=== PATIENT | female | born 1965 | race Caucasian/White ===

== ENCOUNTER 2016-12-09 14:56 | Emergency (ER) | payer BC ==
[2016-12-09] MEDS ORDERED: Ketorolac INJ* 30 MG/ML 1 ML VIAL IV ONE (17:42)
[2016-12-09 17:52] LABS: Urine Bacteria Absent (Absent); Urine Bilirubin Negative (Negative); Urine Glucose Negative (Negative); Urine Nitrite Negative (Negative)
[2016-12-09 17:54] LABS: Hematocrit 38 % (35-47); Hemoglobin 13.2 g/dl (12.0-16.0); Mean Corpuscular HGB Conc 35 g/dl (31-36); Mean Corpuscular Hemoglobin 32 pg (27-31); Mean Corpuscular Volume 91 fL (80-97); Mean Platelet Volume 8 um3 (7.4-10.4); Red Blood Count 4.18 10^6/ul (4.0-5.4); Red Cell Distribution Width 13 % (10.5-15); White Blood Count 7.4 10^3/ul (3.5-10.8)
[2016-12-09 18:10] LABS: BUN/Creatinine Ratio 13.9 (8-20); C Reactive Protein 1.01 mg/L (< 5.00); Calcium 9.5 mg/dL (8.6-10.3); EGFR African American 109.8 (>60); EGFR Non-African American 85.4 (>60); Globulin 2.8 g/dL (2-4); Potassium 3.8 mmol/L (3.5-5.0); Total Bilirubin 0.5 mg/dL (0.2-1.0); Total Protein 6.8 g/dL (6.4-8.9)
--- NOTE | 2016-12-09 19:10 | RAD ---
CLINICAL HISTORY: Right flank pain COMPARISON: None TECHNIQUE: Multiple contiguous axial CT scans were obtained of the abdomen and pelvis, without intravenous contrast enhancement. Coronal and sagittal multiplanar reformations are submitted for review. Oral contrast was not administered. FINDINGS: The study is limited by the lack of intravenous contrast. This limits evaluation of the solid organs and vasculature. LUNG BASES: The lung bases are clear. LIVER: The liver is normal in shape, size, contour, and attenuation. BILE DUCTS: There is no intrahepatic or extrahepatic biliary dilatation. GALLBLADDER: The gallbladder is normal, without pericholecystic inflammatory change. PANCREAS: The pancreas is normal, without mass or ductal dilatation. SPLEEN: Normal in size and appearance. UPPER GI TRACT: Evaluation of the gastrointestinal tract is limited by incomplete gastric distention. The upper GI tract is unremarkable. SMALL BOWEL AND MESENTERY: The small bowel is normal in contour, course, and caliber. There is no obstruction or dilatation. COLON: The colon is normal in contour, course, caliber. There is no pericolonic inflammatory change. There is a tubular, vermiform, hollow viscus that is blind ending, and originates from the cecum, consistent with a normal appendix. There is no periappendiceal inflammatory change. This is best seen on axial images 97 through 114 ADRENALS: Normal bilaterally. KIDNEYS: The kidneys are normal in shape, size, contour, and axis. There is no hydronephrosis or nephrolithiasis. BLADDER: The bladder is incompletely distended but is grossly normal. PELVIC ORGANS: The uterus is bulky with small calcified fibroids. AORTA: The aorta is normal. IVC: Unremarkable LYMPH NODES: There is no lymphadenopathy by size criteria. ABDOMINAL WALL: There is no evidence for abdominal wall hernia. BONES AND SOFT TISSUES: There are mild diffuse degenerative changes. OTHER: None IMPRESSION: NO HYDRONEPHROSIS OR NEPHROLITHIASIS. FIBROID UTERUS.
[2016-12-09] MEDS ORDERED: HYDROcodone/ACETAMIN 5-325 MG* 1 TAB PO SCH (21:00)
[2016-12-09 21:19] VITALS: BP 143/88
--- NOTE | 2016-12-09 21:51 | ED ---
Haleigh Sarkar Erika, scribed for Luis F Borja MD on 12/09/16 at 1812 . GI/ HPI - HPI Summary HPI Summary: Patient is a 51-year-old female presenting to the ED with a CC of RLQ pain. Patient reports that she had some abdominal cramping this morning. Starting at 12:00 today, patient developed the RLQ pain, which radiates into the right flank. Pain is constantly dull and intermittently sharp. Currently, she rates pain a 6/10. Pain is aggravated by movement. Associated symptoms include nausea , but she denies vomiting, urinary symptoms, and abnormal BMs. Patient reports she had food at 07:30, 11:30, and 14:30, which did not affect the pain. PSHx endometrial ablation in 04/2016 - she reports intermittent cramping since then. - History of Current Complaint Chief Complaint: EDFlankPain Time Seen by Provider: 12/09/16 16:42 Stated Complaint: ABDOMINAL PAIN Hx Obtained From: Patient Onset/Duration: Started Hours Ago, Atraumatic, Still Present Timing: Constant Severity: Moderate Pain Intensity: 6 Location of Pain: RLQ, Flank - R Pain Characteristics: Sharp - intermittently, Dull - constantly Associated Signs and Symptoms: Positive: Nausea. Negative: Vomiting, Diarrhea, UTI Symptoms Aggravating Factor(s): Movement - Allergy/Home Medications Allergies/Adverse Reactions: Allergies Allergy/AdvReac Type Severity Reaction Status Date / Time SEASONAL HAYFEVER Allergy Intermediate SNEEZING, Uncoded 12/08/16 13:45 RUNNY NOSE PMH/Surg Hx/FS Hx/Imm Hx Endocrine/Hematology History: Denies: Hx Diabetes Cardiovascular History: Denies: Hx Hypertension, Hx Pacemaker/ICD GI History: Reports: Hx Gastroesophageal Reflux Disease - mild, Hx Irritable Bowel History: Reports: Other Problems/Disorders - UTI'S IN THE PAST Denies: Hx Renal Disease Musculoskeletal History: Reports: Hx Arthritis - minor in hands, ankles, hips, Hx Bursitis - HISTORY OF IN BILATERAL ELBOWS AND KNEES -no active at this time Denies: Hx Rheumatoid Arthritis, Hx Osteoporosis Sensory History: Reports: Hx Contacts or Glasses - CONTACT WILL WEAR GLASSES DAY OF SURGERY Denies: Hx Hearing Aid Opthamlomology History: Reports: Hx Contacts or Glasses - CONTACT WILL WEAR GLASSES DAY OF SURGERY Psychiatric History: Reports: Hx Depression - ON MEDICATION Denies: Hx Panic Disorder - Surgical History Surgery Procedure, Year, and Place: 1994 RIGHT WRIST SURGERY, [facility]. ?, 2002, 2009 ARTHROSCOPIC SURGERY X 3 ON LEFT KNEE, [facility]. 2010 CYST REMOVED FROM TOP OF LEFT FOOT, [facility]. 2013 CYST REMOVED FROM LEFT ANKLE. 2006 TUBAL DONE. 2016 endometrial ablation Hx Anesthesia Reactions: No Infectious Disease History: No Infectious Disease History: Denies: Traveled Outside the [place] in Last 30 Days - Family History Known Family History: Positive: Other - Breast CA - Social History Occupation: Employed Full-time Alcohol Use: Occasionally Hx Substance Use: No Substance Use Type: Reports: None Hx Tobacco Use: No Smoking Status (MU): Never Smoked Tobacco Review of Systems Positive: Abdominal Pain - RLQ, Nausea. Negative: Vomiting Positive: flank pain - R. Negative: dysuria All Other Systems Reviewed And Are Negative: Yes Physical Exam Triage Information Reviewed: Yes Vital Signs On Initial Exam: Initial Vitals Temp Pulse Resp BP Pulse Ox 97.6 F 74 15 152/82 100 12/09/16 15:03 12/09/16 15:03 12/09/16 15:03 12/09/16 15:03 12/09/16 15:03 Vital Signs Reviewed: Yes Appearance: Positive: Well-Appearing, No Pain Distress Skin: Positive: Warm, Skin Color Reflects Adequate Perfusion, Dry Head/Face: Positive: Normal Head/Face Inspection Eyes: Positive: Normal ENT: Positive: Normal ENT inspection Neck: Positive: Supple, Nontender Respiratory/Lung Sounds: Positive: Clear to Auscultation, Breath Sounds Present Cardiovascular: Positive: RRR Abdomen Description: Positive: Soft, Other: - Very mild RLQ tenderness Bowel Sounds: Positive: Present Musculoskeletal: Positive: Normal Neurological: Positive: Normal Psychiatric: Positive: Affect/Mood Appropriate - Finn Coma Scale Coma Scale Total: 15 Diagnostics - Vital Signs Vital Signs Temp Pulse Resp BP Pulse Ox 12/09/16 16:36 69 131/75 96 12/09/16 16:04 78 136/91 99 12/09/16 16:03 98.2 F 76 16 136/92 100 12/09/16 15:03 97.6 F 74 15 152/82 100 - Laboratory Lab Results: Lab Results 12/09/16 12/09/16 12/09/16 Range/Units 16:37 17:38 17:38 WBC 7.4 (3.5-10.8) 10^3/ul RBC 4.18 (4.0-5.4) 10^6/ul Hgb 13.2 (12.0-16.0) g/dl Hct 38 (35-47) % MCV 91 (80-97) fL MCH 32 H (27-31) pg MCHC 35 (31-36) g/dl RDW 13 (10.5-15) % Plt Count 220 (150-450) 10^3/ul MPV 8 (7.4-10.4) um3 Neut % (Auto) 73.9 (38-83) % Lymph % (Auto) 17.2 L (25-47) % [place] % (Auto) 6.1 (1-9) % Eos % (Auto) 0.6 (0-6) % Baso % (Auto) 2.2 H (0-2) % Absolute Neuts (auto) 5.5 (1.5-7.7) 10^3/ul Absolute Lymphs (auto) 1.3 (1.0-4.8) 10^3/ul Absolute Monos (auto) 0.5 (0-0.8) 10^3/ul Absolute Eos (auto) 0 (0-0.6) 10^3/ul Absolute Basos (auto) 0.2 (0-0.2) 10^3/ul Absolute Nucleated RBC 0 10^3/ul Nucleated RBC % 0.1 Sodium 134 (133-145) mmol/L Potassium 3.8 (3.5-5.0) mmol/L Chloride 103 (101-111) mmol/L Carbon Dioxide 25 (22-32) mmol/L Anion Gap 6 (2-11) mmol/L BUN 10 (6-24) mg/dL Creatinine 0.72 (0.51-0.95) mg/dL Est GFR ( Amer) 109.8 (>60) Est GFR (Non-Af Amer) 85.4 (>60) BUN/Creatinine Ratio 13.9 (8-20) Glucose 88 (70-100) mg/dL Lactic Acid (0.5-2.0) mmol/L Calcium 9.5 (8.6-10.3) mg/dL Total Bilirubin 0.50 (0.2-1.0) mg/dL AST 21 (13-39) U/L ALT 35 (7-52) U/L Alkaline Phosphatase 55 (34-104) U/L C-Reactive Protein 1.01 (< 5.00) mg/L Total Protein 6.8 (6.4-8.9) g/dL Albumin 4.0 (3.2-5.2) g/dL Globulin 2.8 (2-4) g/dL Albumin/Globulin Ratio 1.4 (1-3) Lipase 29 (11.0-82.0) U/L Urine Color Yellow Urine Appearance Clear Urine pH 6.0 (5-9) Ur Specific [place] 1.026 (1.010-1.030) Urine Protein Negative (Negative) Urine Ketones Trace H (Negative) Urine Blood 1+ H (Negative) Urine Nitrate Negative (Negative) Urine Bilirubin Negative (Negative) Urine Urobilinogen Negative (Negative) Ur Leukocyte Esterase Trace H (Negative) Urine WBC (Auto) Trace(0-5/hpf) (Absent) Urine RBC (Auto) 1+(3-5/hpf) H (Absent) Ur Squamous Epith Cells Present H (Absent) Urine Bacteria Absent (Absent) Urine Glucose Negative (Negative) 12/09/16 Range/Units 17:38 WBC (3.5-10.8) 10^3/ul RBC (4.0-5.4) 10^6/ul Hgb (12.0-16.0) g/dl Hct (35-47) % MCV (80-97) fL MCH (27-31) pg MCHC (31-36) g/dl RDW (10.5-15) % Plt Count (150-450) 10^3/ul MPV (7.4-10.4) um3 Neut % (Auto) (38-83) % Lymph % (Auto) (25-47) % [place] % (Auto) (1-9) % Eos % (Auto) (0-6) % Baso % (Auto) (0-2) % Absolute Neuts (auto) (1.5-7.7) 10^3/ul Absolute Lymphs (auto) (1.0-4.8) 10^3/ul Absolute Monos (auto) (0-0.8) 10^3/ul Absolute Eos (auto) (0-0.6) 10^3/ul Absolute Basos (auto) (0-0.2) 10^3/ul Absolute Nucleated RBC 10^3/ul Nucleated RBC % Sodium (133-145) mmol/L Potassium (3.5-5.0) mmol/L Chloride (101-111) mmol/L Carbon Dioxide (22-32) mmol/L Anion Gap (2-11) mmol/L BUN (6-24) mg/dL Creatinine (0.51-0.95) mg/dL Est GFR ( Amer) (>60) Est GFR (Non-Af Amer) (>60) BUN/Creatinine Ratio (8-20) Glucose (70-100) mg/dL Lactic Acid 1.0 (0.5-2.0) mmol/L Calcium (8.6-10.3) mg/dL Total Bilirubin (0.2-1.0) mg/dL AST (13-39) U/L ALT (7-52) U/L Alkaline Phosphatase (34-104) U/L C-Reactive Protein (< 5.00) mg/L Total Protein (6.4-8.9) g/dL Albumin (3.2-5.2) g/dL Globulin (2-4) g/dL Albumin/Globulin Ratio (1-3) Lipase (11.0-82.0) U/L Urine Color Urine Appearance Urine pH (5-9) Ur Specific [place] (1.010-1.030) Urine Protein (Negative) Urine Ketones (Negative) Urine Blood (Negative) Urine Nitrate (Negative) Urine Bilirubin (Negative) Urine Urobilinogen (Negative) Ur Leukocyte Esterase (Negative) Urine WBC (Auto) (Absent) Urine RBC (Auto) (Absent) Ur Squamous Epith Cells (Absent) Urine Bacteria (Absent) Urine Glucose (Negative) Result Diagrams: 12/09/16 17:38 12/09/16 17:38 Lab Statement: Any lab studies that have been ordered have been reviewed, and results considered in the medical decision making process. - CT CT A/P W/O CT Interpretation Completed By: Radiologist - IMPRESSION: NO HYDRONEPHROSIS OR NEPHROLITHIASIS. FIBROID UTERUS. - EKG 17:43 Cardiac Rate: NL - at 69 bpm EKG Rhythm: Sinus Rhythm ST Segment: Non-Specific Re-Evaluation - Re-Evaluation First Eval Re-Evaluation Time: 19:40 Comment: Discussed lab and CT results with patient GIGU Course/Dx - Course Course Of Treatment: Her W/U was negative here. We discussed getting an U/S but she has had one just a week ago and since her symptoms are mild now and no dangerous condition has been found, she elected to be D/C'd and F/U if needed. - Diagnoses Provider Diagnoses: Abdominal pain Discharge - Discharge Plan Condition: Stable Disposition: HOME Prescriptions: HYDROcodone/ACETAMIN 5-325 MG* [Sabinal 5-325 TAB*] 1 tab PO Q6H PRN #20 tab MDD 4 PRN Reason: Pain Patient Education Materials: Abdominal Pain (ED) Referrals: Laina Acevedo, ACCOUNTS SUPERVISOR [Primary Care Provider] - Additional Instructions: Please follow up with your PCP. The documentation as recorded by the Haleigh mejia Erika accurately reflects the service I personally performed and the decisions made by me, Luis F Borja MD.
== END 2016-12-09 20:20 | disposition home or self-care (01) ==
LOC: ED 14:56
DX: R10.31 Right lower quadrant pain (principal); K21.9 Gastro-esophageal reflux disease without esophagitis; F32.9 Major depressive disorder, single episode, unspecified
CPT/HCPCS: 36415; 74176; 80053; 81003; 81015; 83605; 83690; 85025; 86140; 87086; 93005; 96374; 99283; J1885

== ENCOUNTER 2017-02-02 06:26 | Observation (INO) | payer BC ==
[~2017-02-02 06:26] MED LIST: Dexamethasone IV* 4 MG/ML 1 ML (4 MG) IV SLOW PU ONE; Dexamethasone IV* 4 MG/ML 1 ML (4 MG) ONE; Famotidine IV* 10 MG/ML 2 ML (20 mg) IV ONE; Famotidine IV* 10 MG/ML 2 ML (20 mg) ONE; Scopolamine 1.5 mg* PATCH ONE; Scopolamine 1.5 mg* PATCH TRANSDERM ONE; ceFAZolin 2 GM PREMIX(*) 2 GM/50 ML BAG IVPB ONE
[2017-02-02] MEDS ORDERED: VASOPRESSIN 20 UNITS/ML 1 ML VIAL ONE (07:22)
[2017-02-02] MEDS ORDERED: Bacitracin OINTMENT* 1 TUBE ONE (07:22)
[2017-02-02] MEDS ORDERED: Midazolam* 1 MG/ML 5 ML VIAL (5 MG) ONE (07:40)
[2017-02-02] MEDS ORDERED: fentaNYL* 50 MCG/ML 2 ML VIAL (100 MCG VIAL) ONE ×5 (07:40→12:27)
[2017-02-02] MEDS ORDERED: Lidocaine 2% PF * 5 ML VIAL ONE (07:47)
[2017-02-02] MEDS ORDERED: Rocuronium* 10 MG/ML VIAL ONE (07:47)
[2017-02-02] MEDS ORDERED: Propofol* 10 MG/ML 20 ML BTL IV PUSH ONE (07:47)
[2017-02-02] MEDS ORDERED: EPHEDrine (Pressors)* 50 MG/ML VIAL ONE (08:01)
[2017-02-02] MEDS ORDERED: Ondansetron INJ* 2 MG/ML VIAL ONE (08:08)
[2017-02-02] MEDS ORDERED: PROCHLORPERAZINE INJ 5 MG/ML 2 ML VIAL IV PRN (08:29)
[2017-02-02] MEDS ORDERED: Morphine INJ* 2 MG/ML 1 ML SYRINGE IV PRN (08:29)
[2017-02-02] MEDS ORDERED: KETAMINE HCL* 50 MG/ML 10 ML VIAL ONE (08:33)
[2017-02-02] MEDS ORDERED: Labetalol IV* 5 MG/ML 20 ML VIAL ONE (09:17)
[2017-02-02] MEDS ORDERED: Ketorolac INJ* 30 MG/ML 1 ML VIAL ONE (09:18)
[2017-02-02] MEDS ORDERED: Morphine INJ* 10 MG/ML 1 ML SYRINGE ONE (09:22)
[2017-02-02] MEDS: fentaNYL* 50 MCG/ML 2 ML VIAL (100 MCG VIAL) IV PRN ×3 (11:03→12:27)
[2017-02-02] MEDS: oxyCODONE/Acetamin 5/325 MG* TAB PO PRN ×2 (11:49→12:45)
[2017-02-02] MEDS ORDERED: oxyCODONE/Acetamin 5/325 MG* TAB ONE ×2 (11:49→12:45)
[2017-02-02] MEDS ORDERED: Ibuprofen TAB* 600 MG PO PRN (12:09)
[2017-02-02] MEDS ORDERED: oxyCODONE/Acetamin 5/325 MG* TAB PO PRN ×2 (12:09)
[2017-02-02] MEDS ORDERED: Zolpidem TAB* 5 MG PO PRN (12:09)
[2017-02-02] MEDS ORDERED: Acetaminophen TAB* 325 MG PO PRN (12:09)
[2017-02-02] MEDS: Docusate CAP* 100 MG PO SCH ×2 (15:19→21:20)
--- NOTE | 2017-02-03 03:23 | OP ---
DATE OF OPERATION: 02/02/17 - ROOM #338 DATE OF : 65 SURGEON: Adina Monsivais MD ANESTHESIOLOGIST: Deny Vicente MD ANESTHESIA: General endotracheal. PRE-OP DIAGNOSIS: Pelvic pain, postablation syndrome. POST-OP DIAGNOSES: Pelvic pain, postablation syndrome; fibroid uterus. OPERATIVE PROCEDURE: Total vaginal hysterectomy. ESTIMATED BLOOD LOSS: 500 mL. FLUIDS: Crystalloid. DRAINS: Baptiste catheter. FINDINGS: Normal-appearing cervix with two small inclusion cysts to the left of the cervix. Normal-appearing very small ovaries. Tubes with what appears to be a Falope ring at least on the left tube that was visible and uterus with several small fibroids and possible adenomyosis. DESCRIPTION OF PROCEDURE: After informed consent was signed, the patient was taken to the operating room where she was given general anesthesia that was found to be adequate. SCDs were placed on her leg. She was prepped and draped in the normal sterile fashion in the dorsal lithotomy position and the Jonh stirrups. A Baptiste catheter was introduced into her bladder. A speculum was placed into the vagina to expose the cervix and the anterior and posterior lips of the cervix were grasped with Landa tenaculum. The ectocervix was infiltrated with vasopressin. Electrocautery was then used to make a circumferential incision around the cervix at the cervicovaginal junction. Sharp dissection was then used with the Kiran scissors to dissect the bladder off the anterior aspect of the cervix. This was continued around the rest of the cervix. Blunt dissection was then used to further dissect the tissue off the cervix. Next, the anterior cul-de-sac was entered with sharp dissection with the Kiran scissors and a right angle retractor was inserted. The uterosacral ligaments were then palpated, clamped with a Carolyne clamp, cut, and suture ligated with 0 Vicryl suture. The sutures were held with clamps for later use. Blunt dissection was used to continue to dissect the bladder off the cervix. The cardinal ligaments were then clamped, cut, and suture ligated with 0 Vicryl. The bladder continued to be dissected and the posterior cul-de-sac was then entered with the Metzenbaum scissors and the retractor was inserted. Next, the uterine vessels and the rest of the cardinal ligaments were clamped, suture ligated and cut. This was continued along the left and the right side of the cervix until the parametrium was identified. Next, the Newberg tenaculums were used to grasp the body of the uterus and deliver it posteriorly through the vaginal incision. The uterine tissue was very friable and with the presence of the fibroids, it was somewhat difficult to deliver the uterus and when it was delivered, it was then possible to work around the uterus. Therefore, the utero-ovarian ligaments were clamped on either side and the uterus was then morcellated to the vagina. Then, the utero-ovarian ligaments were clamped, cauterized, and cut with the LigaSure device. This was continued to the mesosalpinx until the uterus was totally freed. The specimen was removed from the vagina and sent to Pathology. Attempts were made to remove the tubes, but only the right tube was easily found. This was clamped, cauterized, and cut with the LigaSure device. Vidal culdoplasty was then performed placing the suture through either uterosacral ligament as well as through the posterior peritoneum and the anterior peritoneum. This was tied off in a pursestring fashion. Then, the uterosacral ligaments were tied together and the vaginal cuff was closed with 0 Vicryl in a running fashion. An extra [id number] suture was placed in the middle of the incision for good hemostasis. Finally, saline-soaked packing was placed into the vagina. The speculum was removed from the vagina. The patient was awakened from anesthesia, placed back in the supine position and moved to the recovery room in stable condition. [id number]/[facility] #: [id number] MAURICE
[2017-02-03 07:23] LABS: Hematocrit 32 % (35-47); Hemoglobin 10.9 g/dl (12.0-16.0); Mean Corpuscular HGB Conc 34 g/dl (31-36); Mean Corpuscular Hemoglobin 32 pg (27-31); Mean Corpuscular Volume 94 fL (80-97); Mean Platelet Volume 8 um3 (7.4-10.4); Red Blood Count 3.39 10^6/ul (4.0-5.4); Red Cell Distribution Width 13 % (10.5-15); White Blood Count 10.1 10^3/ul (3.5-10.8)
--- NOTE | 2017-02-03 08:04 | DS ---
DISCHARGE SUMMARY: DATE OF ADMISSION: 02/02/17 DATE OF DISCHARGE: 02/03/17 HOSPITAL COURSE: This patient is a 51-year-old, 5 para 4, seen in the office with persistent pelvic pain. This was considered to be likely due to a post ablation syndrome since she had had a prior tubal ligation and uterine endometrial ablation. On the day of admission, she underwent an uncomplicated total vaginal hysterectomy with a partial right salpingectomy with Dr. Monsiavis. Estimated blood loss was 500 cc. After a brief recovery, she was transferred to the [facility]. On postoperative day 1, the patient was ambulating and tolerating regular diet and voided spontaneously after removal of her catheter. Vaginal packing was also removed. She was having very good pain control with oral pain medications and was passing flatus. She was discharged to home in good condition on postoperative day 1. DISCHARGE PHYSICAL EXAMINATION: Vital Signs: Temperature 98.5, pulse 68, blood pressure 93/50. General: No acute distress, very comfortable, seated in bed. Chest: Clear to auscultation bilaterally. Cardiovascular: Normal sinus rhythm. Abdomen: Minimal tenderness to palpation with normal bowel sounds. No rebound or guarding. Pelvic examination: Vaginal packing removed without difficulty and the patient tolerated well. Only mild amount of blood present on the upper packing. LABORATORY DATA: Postop Hct 32 DISCHARGE INSTRUCTIONS: Were provided in written form and verbally. DISCHARGE MEDICATIONS: Please see the medication reconciliation form. DISCHARGE DIAGNOSIS: Pelvic pain with post ablation syndrome, status post uncomplicated total vaginal hysterectomy, partial right salpingectomy. [id number]/[facility] #: [id number] MTDD
[2017-02-03 09:25] VITALS: BP 99/51
[2017-02-03] MEDS: Docusate CAP* 100 MG PO SCH (10:05)
[2017-02-05] MEDS ORDERED: Scopolomine PATCH Remove* 1 NOTE MISC PATCH OFF ONE (06:00)
== END 2017-02-03 11:00 | disposition home or self-care (01) ==
LOC: OR 06:26 → SSU 13:17
PROVIDERS: ADMIT Obstetrics & Gynecology; ATTEND Obstetrics & Gynecology
PROC: 0UTC7ZZ Resection of Cervix, Via Natural or Artificial Opening (ICD-10-PCS; 2017-02-02)
PROC: 0UT97ZZ Resection of Uterus, Via Natural or Artificial Opening (ICD-10-PCS; principal; 2017-02-02 07:45)
DX: R10.2 Pelvic and perineal pain (principal); R30.0 Dysuria; D25.1 Intramural leiomyoma of uterus
CPT/HCPCS: 36415; 85025; 88307; 94760; A9270-GY; G0378; J0690; J1100; J1885; J2250; J2270; J2405; J2704; J3010

== ENCOUNTER 2019-04-01 15:34 | Emergency (ER) | payer BC ==
[2019-04-01] MEDS ORDERED: Al Hydrox/Mg Hydrox/Simet LIQ* 30 ML UDC PO ONE (16:13)
[2019-04-01 16:16] LABS: ABS Eosinophils 0.1 10^3/ul (0-0.6); ABS Lymphocytes 1.2 10^3/ul (1.0-4.8); ABS Monocytes 0.5 10^3/ul (0-0.8); Eosinophil % 1.9 %; Hematocrit 39 % (35-47); Hemoglobin 13.7 g/dL (12.0-16.0); Lymphocyte % 25.2 %; Mean Corpuscular HGB Conc 35 g/dL (31-36); Mean Corpuscular Hemoglobin 32 pg (27-31); Mean Corpuscular Volume 90 fL (80-97); Mean Platelet Volume 7.2 fL (7.4-10.4); Nucleated Red Blood Cells % 0.1; Platelet Count 234 10^3/uL (150-450); Red Blood Count 4.32 10^6 /uL (3.70-4.87); Red Cell Distribution Width 13 % (10-15); White Blood Count 4.8 10^3/uL (3.5-10.8)
--- NOTE | 2019-04-01 16:16 | ED ---
HPI Chest Pain - HPI Summary HPI Summary: The patient is a 53 y/o F presenting to [facility] with a chief complaint of sudden onset right anterior CP starting last night with intermittent episodes persisting into today. She reports that she had mowed her lawn on a riding mower about an hour before the pain started. Since then, shes had episodes of burning in the chest, which she wasnt sure if it had been from indigestion. She additionally c/o mild SOB, extreme nausea without vomiting, and mild edema in the BLE. She denies any fever, chills, cough with bloody sputum, or abdominal pain. Her current pain is rated 1/10 in severity. No recent long travel. PMHx: GERD, bronchitis, depression, partial hysterectomy, endometrial ablation. FHx: HTN, cardiac disease MA father 70s. No FHx of blood clots. Nonsmoker, occasional EtOH, no substance use. Medications reviewed. Allergies noted. - History of Current Complaint Chief Complaint: EDChestPainROMI Time Seen by Provider: 04/01/19 15:59 Hx Obtained From: Patient Onset/Duration: Started Hours Ago, Still Present Timing: Intermittent, Lasting Minutes Initial Severity: Moderate Current Severity: Mild Pain Intensity: 1 Pain Scale Used: 0-10 Numeric Chest Pain Location: Right Anterior Chest Pain Radiates: No Character: Burning Aggravating Factor(s): Nothing Alleviating Factor(s): Nothing Associated Signs and Symptoms: Positive: Chest Pain, Shortness of Breath - mild , Nausea, Edema - mild, BLE. Negative: Fever, Chills, Cough, Abdominal Pain, Vomiting, Bloody Sputum - Additional Pertinent History Primary Care Physician: VIRI - Allergy/Home Medications Allergies/Adverse Reactions: Allergies Allergy/AdvReac Type Severity Reaction Status Date / Time Iodinated Contrast- Oral and Allergy Mild Rash Verified 10/18/17 17:49 IV Dye SEASONAL HAYFEVER Allergy Intermediate SNEEZING, Uncoded 10/18/17 15:02 RUNNY NOSE GLUTEN Allergy Mild GI Upset Uncoded 10/18/17 15:02 Home Medications: Home Medications Aleve 2 cap PO SEE INSTRUCTIONS 04/01/19 [History Confirmed 04/01/19] PMH/Surg Hx/FS Hx/Imm Hx Endocrine/Hematology History: Denies: Hx Diabetes Cardiovascular History: Denies: Hx Hypertension, Hx Pacemaker/ICD GI History: Reports: Hx Gastroesophageal Reflux Disease - controlled with diet, Hx Irritable Bowel - controlled with diet History: Reports: Other Problems/Disorders - UTI'S IN THE PAST Denies: Hx Renal Disease Musculoskeletal History: Reports: Hx Arthritis - minor in hands, ankles, hips, Hx Bursitis - HISTORY OF IN BILATERAL ELBOWS AND KNEES -no active at this time Denies: Hx Rheumatoid Arthritis, Hx Osteoporosis Sensory History: Reports: Hx Contacts or Glasses - contacts, will wear glasses DOS Denies: Hx Hearing Aid Opthamlomology History: Reports: Hx Contacts or Glasses - contacts, will wear glasses DOS Psychiatric History: Reports: Hx Depression - controlled with medication Denies: Hx Panic Disorder - Surgical History Surgery Procedure, Year, and Place: 1994 RIGHT WRIST SURGERY, [place]. ?, 2002, 2008 ARTHROSCOPIC SURGERY X 3 ON LEFT KNEE, [place]. 2010 CYST REMOVED FROM TOP OF LEFT FOOT, [place]. 2012 CYST REMOVED FROM LEFT ANKLE. 2005 TUBAL DONE. DECEMBER 2016 HYSTERECTOMY Hx Anesthesia Reactions: No Infectious Disease History: No Infectious Disease History: Denies: Traveled Outside the in Last 30 Days - Family History Known Family History: Positive: Other - Breast CA - Social History Alcohol Use: Occasionally Alcohol Amount: 1-2 drinks a week, Hx Substance Use: No Substance Use Type: Reports: None Hx Tobacco Use: No Smoking Status (MU): Never Smoked Tobacco Review of Systems Negative: Fever, Chills Positive: Chest Pain - intermittent burning in right anterior chest Positive: Shortness Of Breath - mild. Negative: Cough Positive: Nausea. Negative: Abdominal Pain, Vomiting Positive: Edema - mild, BLE All Other Systems Reviewed And Are Negative: Yes Physical Exam - Summary Physical Exam Summary: Constitutional: Well-developed, Well-nourished, Alert. (-) Distressed Skin: Warm, Dry HENT: Normocephalic; Atraumatic Eyes: Conjunctiva normal Neck: Musculoskeletal ROM normal neck. (-) JVD, (-) Stridor, (-) Tracheal deviation Cardio: Rhythm regular, rate normal, Heart sounds normal; Intact distal pulses; The pedal pulses are 2+ and symmetric. Radial pulses are 2+ and symmetric. (-) Murmur Pulmonary/Chest wall: Effort normal. (-) Respiratory distress, (-) Wheezes, (-) Rales Abd: Soft, (-) tenderness, (-) Distension, (-) Guarding, (-) Rebound Musculoskeletal: Good pulses bilaterally in radius, No calf tenderness, No venous cords, No pain with dorsiflexion of foot. (-) Edema Lymph: (-) Cervical adenopathy Neuro: Alert, Oriented x3 Psych: Mood and affect Normal Triage Information Reviewed: Yes Vital Signs On Initial Exam: Initial Vitals Temp Pulse Resp BP Pulse Ox 97.2 F 83 18 176/85 100 04/01/19 15:40 04/01/19 15:40 04/01/19 15:40 04/01/19 15:40 04/01/19 15:40 Vital Signs Reviewed: Yes Diagnostics - Vital Signs Vital Signs Temp Pulse Resp BP Pulse Ox 04/01/19 15:40 97.2 F 83 18 176/85 100 - Laboratory Result Diagrams: 04/01/19 16:03 04/01/19 16:03 Lab Statement: Any lab studies that have been ordered have been reviewed, and results considered in the medical decision making process. - Radiology CXR Radiology Interpretation Completed By: Radiologist Summary of Radiographic Findings: Impression: No active cardiopulmonary disease is noted. ED physician has reviewed this report. - EKG 1536 Cardiac Rate: NL - 79 bpm Summary of EKG Findings: NSR at 79 bpm. T wave inversions in V2 and V3. Normal intervals. Re-Evaluation - Re-Evaluation First Eval Re-Evaluation Time: 18:25 Comment: She has not experienced any pain since taking the Maalox. Second Eval Re-Evaluation Time: 19:10 Comment: We discussed results and discharge home. Chest Pain Course/Dx - Course Course Of Treatment: Patient is here with right upper chest burning sensation. Patient's history is not consistent with ACS. Patient is well 0 and did not need workup for PE. Patient's examination is not consistent with aortic dissection. Patient had serial troponin and EKG which showed evidence of ischemia. Patient was given Maalox with improvement in her symptoms. Patient was encouraged to take omeprazole at home for her symptoms. - Diagnoses Provider Diagnoses: Burning chest pain, Nausea Discharge - Sign-Out/Discharge Documenting (check all that apply): Patient Departure - Patient will be discharged home. Patient Received Moderate/Deep Sedation with Procedure: No - Discharge Plan Condition: Stable Disposition: HOME Prescriptions: Omeprazole 20 mg PO QAM 14 Days #14 capsule. Patient Education Materials: Chest Pain (DC), Gastroesophageal Reflux Disease ( DC) Referrals: Laina Acevedo, PLANNER [Primary Care Provider] - 3 Days Additional Instructions: If you would like to start treating acid reflux at home, you may take Omeprazole 20mg once a day for two weeks. Follow up with your primary care provider in 2-3 days. Return to the emergency department for any new or worsening symptoms. - Billing Disposition and Condition Condition: STABLE Disposition: Home - Attestation Statements Document Initiated by Bridget: Yes Documenting Scribe: Janae Funes Provider For Whom Bridget is Documenting (Include Credential): Dr. Uriel Walker MD Scribe Attestation: Janae Sarkar scribed for Dr. Uriel Walker MD on 04/01/19 at 1958. Scribe Documentation Reviewed: Yes Provider Attestation: The documentation as recorded by the Janae mejia accurately reflects the service I personally performed and the decisions made by me, Dr. Uriel Walker MD Status of Scribe Document: Viewed
[2019-04-01 16:18] LABS: INR 1.02 (0.82-1.09)
[2019-04-01 16:29] LABS: Albumin 4.5 g/dL (3.2-5.2); Albumin/Globulin Ratio 1.6 (1-3); BUN/Creatinine Ratio 14.5 (8-20); Calcium 10.2 mg/dL (8.6-10.3); EGFR African American 96.3 (>60); EGFR Non-African American 79.6 (>60); Globulin 2.9 g/dL (2-4); Total Bilirubin 0.5 mg/dL (0.2-1.0); Total Protein 7.4 g/dL (6.4-8.9)
[2019-04-01 20:38] VITALS: BP 164/103
== END 2019-04-01 20:37 | disposition home or self-care (01) ==
LOC: ED 15:34
DX: R07.89 Other chest pain (principal); R11.0 Nausea; Z91.041 Radiographic dye allergy status; K21.9 Gastro-esophageal reflux disease without esophagitis
CPT/HCPCS: 36415; 71045; 80053; 84484; 85025; 85610; 93005; 99282; A9270-GY

== ENCOUNTER 2024-02-06 07:33 | Observation (INO) ==
[~2024-02-06 07:33] MED LIST changes: -Dexamethasone IV* 4 MG/ML 1 ML (4 MG) IV SLOW PU ONE; -Dexamethasone IV* 4 MG/ML 1 ML (4 MG) ONE; -Famotidine IV* 10 MG/ML 2 ML (20 mg) IV ONE; -Famotidine IV* 10 MG/ML 2 ML (20 mg) ONE; +Metoclopramide 5 MG/ML VIAL (10 mg) IV PRN; +NS 0.45% 1000 ml BAG 1,000 ML IV SCH; +Naloxone 0.4 mg VIAL 0.4 mg/ml 1 ml VIAL IV PRN; +Ondansetron 4 mg VIAL 2 MG/ML 2 ml VIAL IV PRN; +Remifentanil 2 MG VIAL ONE; -Scopolamine 1.5 mg* PATCH ONE; -Scopolamine 1.5 mg* PATCH TRANSDERM ONE; -ceFAZolin 2 GM PREMIX(*) 2 GM/50 ML BAG IVPB ONE; +fentaNYL 100 mcg/2 ml 50 MCG/ML VIAL IV PRN
[2024-02-06] MEDS ORDERED: Chlorhexidine MOUTHWASH 0.12% 15 ML UDC ONE (08:02)
[2024-02-06] MEDS ORDERED: ceFAZolin 2 GM PREMIX 2 GM/50 ML BAG ONE (08:12)
[2024-02-06] MEDS ORDERED: Rocuronium 50 mg VIAL 10 mg/ml 5 ml VIAL (50 mg) ONE ×2 (08:18→11:33)
[2024-02-06] MEDS ORDERED: Dexamethasone IV 4 MG/ML VIAL 1 ml VIAL ONE (08:18)
[2024-02-06] MEDS ORDERED: Propofol 10 MG/ML 20 ML BTL ONE (08:18)
[2024-02-06] MEDS ORDERED: Ondansetron 4 mg VIAL 2 MG/ML 2 ml VIAL ONE (08:18)
[2024-02-06] MEDS ORDERED: Lidocaine 2% PF 5 ML VIAL ONE (08:18)
[2024-02-06] MEDS ORDERED: Midazolam 2 mg/2 ml VIAL 1 mg/ml 2 ml VIAL (2 mg) ONE (08:19)
[2024-02-06] MEDS ORDERED: fentaNYL 250 mcg/5 ml 50 MCG/ML 5 ml VIAL (250 MCG) ONE (08:19)
[2024-02-06] MEDS ORDERED: HYDROmorphone 0.5 MG/0.5 ML SYRINGE ONE ×2 (08:19→11:50)
[2024-02-06 08:23] LABS: Rapid COVID-19 Molecular Undetected (Undetected)
[2024-02-06] MEDS ORDERED: Scopolamine 1 mg/72hr PATCH ONE (08:34)
[2024-02-06] MEDS: Scopolamine 1 mg/72hr PATCH TRANSDERM ONE (08:37)
[2024-02-06] MEDS ORDERED: Lidocaine 1% w EPI 1:100,000 MDV 20 ML VIAL ONE (09:57)
[2024-02-06] MEDS ORDERED: ceFAZolin VIAL VIAL ONE (09:58)
[2024-02-06] MEDS ORDERED: Thrombin 5,000 UNITS(BOVINE) for Ultrasound Guided Pseudoaneursym ONE ×2 (09:58→11:08)
[2024-02-06] MEDS ORDERED: Gelfoam Sponge SIZE 100 SPONGE ONE (09:58)
[2024-02-06] MEDS ORDERED: fentaNYL 100 mcg/2 ml 50 MCG/ML VIAL ONE (10:40)
[2024-02-06] MEDS ORDERED: Senna TAB 8.6 mg TAB PO PRN (12:59)
[2024-02-06] MEDS ORDERED: Calcium Carb (TUMS) 500 mg CHEW TAB PO PRN (12:59)
[2024-02-06] MEDS ORDERED: Ondansetron 4 mg VIAL 2 MG/ML 2 ml VIAL IV PRN (12:59)
[2024-02-06] MEDS ORDERED: Phenol 1.4% Throat Spray BTL MT PRN (12:59)
[2024-02-06] MEDS ORDERED: Magnesium Hydroxide LIQ 30 ML UDC PO PRN (12:59)
[2024-02-06] MEDS ORDERED: Dextran 70/Hypromellose Tears Eye Drops 15 ml BTL (for Artificials Tears) BOTH EYES PRN (12:59)
[2024-02-06] MEDS ORDERED: Morphine 2 MG/ML SYRINGE IV PRN (12:59)
[2024-02-06] MEDS ORDERED: Albuterol HFA INHALER 8 gm MDI INH PRN (13:05)
[2024-02-06] MEDS: Buffered Lidocaine 1% SYRIN 1 ml INTRADERM ONE (15:51)
[2024-02-06] MEDS: Acetaminophen IV 1 GM/100ML 1,000 MG/100 ML BAG IV ONE (16:25)
[2024-02-06] MEDS: Lactated Ringers 1000 ml BAG 1,000 ML IV SCH ×2 (16:25)
[2024-02-07] MEDS ORDERED: Lisinopril/HCTZ 10/12.5 TA(NF) PO SCH (09:00)
[2024-02-07] MEDS: Benzocaine/Menthol LOZ MT PRN (09:50)
[2024-02-07 10:40] VITALS: BP 134/86
== END 2024-02-07 12:25 | disposition home or self-care (01) ==
LOC: OR 07:33 → SSU 07:33
PROVIDERS: ADMIT Neurological Surgery; ATTEND Neurological Surgery